=== PATIENT | male | born 1985 | race African-American/Black ===

== ENCOUNTER 2019-08-17 21:39 | Emergency (ER) | payer OTHER ==
[~2019-08-17] VITALS: Ht 167.6 cm; Wt 89.4 kg
[2019-08-17 22:10] VITALS: BP 134/86
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
[2019-08-17] MEDS ORDERED: Methocarbamol 500mg tab ORAL ONE (22:45)
--- NOTE | 2019-08-17 23:26 | Diagnostic Imaging Report ---
EXAM: CT Lumbar Spine Without Intravenous Contrast CLINICAL HISTORY: PAIN TECHNIQUE: Axial computed tomography images of the lumbar spine without intravenous contrast. CTDI is 12 mGy and DLP is 683 mGy-cm. One or more of the following dose reduction techniques were used: automated exposure control, adjustment of the mA and/or kV according to patient size, use of iterative reconstruction technique. COMPARISON: No relevant prior studies available. FINDINGS: Vertebrae: Unremarkable. No acute fracture. Discs/spinal canal/neural foramina: There is a 3 mm posterior disc bulge at L5-S1. No spinal canal stenosis. Soft tissues: Unremarkable. IMPRESSION: 1. 3 mm posterior disc bulge at L5-S1. 2. No other acute findings.
--- NOTE | 2019-08-17 23:31 | Diagnostic Imaging Report ---
EXAM: CT Thoracic Spine Without Intravenous Contrast CLINICAL HISTORY: PAIN TECHNIQUE: Axial computed tomography images of the thoracic spine without intravenous contrast. CTDI is 12 mGy and DLP is 683 mGy-cm. One or more of the following dose reduction techniques were used: automated exposure control, adjustment of the mA and/or kV according to patient size, use of iterative reconstruction technique. COMPARISON: No relevant prior studies available. FINDINGS: Vertebrae: Unremarkable. No acute fracture. Discs/spinal canal/neural foramina: There are mild multilevel degenerative changes. No spinal canal stenosis. Soft tissues: Unremarkable. IMPRESSION: 1. No acute findings. 2. Mild multilevel degenerative changes.
[2019-08-17] MEDS ORDERED: ROBAXIN-500MG ORAL (23:33)
[2019-08-17 23:35] VITALS: BP 129/85
--- NOTE | 2019-08-17 23:35 | NUR ---
ER DISCHARGE NOTE: Patient is cleared to be discharged per ERMD, pt is aox4, on room air, with stable vital signs. pt was given dc and prescription instructions, pt was able to verbalize understanding, pt id band removed. pt is able to ambulate with steady gait. pt took all belongings.
--- NOTE | 2019-08-17 23:35 | NUR ---
ED Nurse Note: Pt reports decreased pain and feels better after medication.
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
== END 2019-08-17 23:40 | disposition home or self-care (01) ==
LOC: EMR 22:08
DX: M51.06 Intervertebral disc disorders with myelopathy, lumbar region (principal); V43.52XA Car driver injured in collision with other type car in traffic accident, initial encounter; Y92.411 Interstate highway as the place of occurrence of the external cause; Z88.6 Allergy status to analgesic agent
CPT/HCPCS: 72128; 72131; 99284

== ENCOUNTER 2019-12-21 17:18 | Emergency (ER) | payer SELFPAY ==
[~2019-12-21] VITALS: Ht 167.6 cm; Wt 86.2 kg
[~2019-12-21 17:18] MED LIST: ROBAXIN-500MG ORAL
[2019-12-21] MEDS ORDERED: Azithromycin 250mg tab ORAL ONE (17:30)
[2019-12-21] MEDS ORDERED: Lidocaine 1% MPF 10mg/ml 5ml INJ ONE (17:30)
--- NOTE | 2019-12-21 17:35 | Emergency Room Report ---
History of Present Illness General Chief Complaint: Male Urogenital Problems Source: Patient Present Illness HPI 34-year-old male here requesting STD check. Patient says that he had unprotected sex with a woman earlier today. Patient says that he got a call from the woman who said that she began to have vaginal burning and went to a clinic in was treated for an STD. Patient is having no complaints right now. Denies fevers, chills, chest pain, palpitations, shortness of breath, back pain, abdominal pain, nausea, vomiting, diarrhea, dysuria, penile discharge, testicular swelling or pain. 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 Review of Systems All Other Systems: negative except mentioned in HPI Physical Exam Vital Signs Date Time Temp Pulse Resp B/P (MAP) Pulse Ox O2 Delivery O2 Flow Rate FiO2 12/21/19 17:20 97.9 73 17 115/69 (84) 99 Room Air Sp02 EP Interpretation: reviewed, normal General Appearance: no apparent distress, alert, non-toxic Head: normocephalic, atraumatic Eyes: bilateral eye normal inspection, bilateral eye PERRL ENT: hearing grossly normal, normal pharynx, no angioedema, normal voice Neck: full range of motion, supple/symm/no masses Respiratory: chest non-tender, lungs clear, normal breath sounds, speaking full sentences Cardiovascular #1: regular rate, rhythm, no edema Cardiovascular #2: 2+ carotid (R), 2+ carotid (L), 2+ radial (R), 2+ radial (L), 2+ dorsalis pedis (R), 2+ dorsalis pedis (L) Gastrointestinal: normal bowel sounds, non tender, soft, non-distended, no guarding, no rebound Rectal: deferred Genitourinary: normal inspection, no CVA tenderness Musculoskeletal: back normal, normal range of motion, gait/station normal, non- tender Neurologic: alert, motor strength/tone normal, sensory intact, responsive, speech normal Psychiatric: judgement/insight normal, memory normal, mood/affect normal, no suicidal/homicidal ideation Lymphatic: no adenopathy Medical Decision Making Diagnostic Impression: Primary Impression: STD (sexually transmitted disease) Additional Impression: STD exposure ER Course 34-year-old male here for suspicion of being exposed to STD. Patient normal physical examination. He was given Rocephin and azithromycin in the emergency department for GC chlamydia coverage. Was told to follow-up at one of the clinics in the discharge paperwork if he is concerned for other STIs such as HIV or syphilis. Was told to come back to the emergency department with worsening symptoms. He expressed understanding and was discharged. Last Vital Signs Date Time Temp Pulse Resp B/P (MAP) Pulse Ox O2 Delivery O2 Flow Rate FiO2 12/21/19 17:20 97.9 73 17 115/69 (84) 99 Room Air Disposition: HOME, SELF-CARE Condition: Stable Referrals: [facility] *Patients are seen by appointment only* [facility] Patient Instructions: Urethritis, Adult Additional Instructions: Please follow-up with your primary care doctor in the next 1 to 3 days to discuss this emergency department visit and for reevaluation. If you have any new or worsening symptoms please return to the emergency department for reevaluation. Master Rivera M.D. Dec 21, 2019 17:35
[2019-12-21 17:37] VITALS: BP 115/69
[2019-12-21 18:02] VITALS: BP 118/72
== END 2019-12-21 18:02 | disposition home or self-care (01) ==
LOC: EMR 17:35
DX: A64 Unspecified sexually transmitted disease (principal); Z20.2 Contact with and (suspected) exposure to infections with a predominantly sexual mode of transmission; Z88.6 Allergy status to analgesic agent
CPT/HCPCS: 96372; 99283; J0696